=== PATIENT | male | born 1990 | race Caucasian/White ===

== ENCOUNTER 2020-10-30 15:47 | Emergency (ER) | payer BC ==
[2020-10-30] MEDS ORDERED: Lidocaine 1% 30 ML SDV INJECT ONE (16:06)
--- NOTE | 2020-10-30 16:07 | CR ---
PROCEDURE INFORMATION: Exam: XR Left Finger(s) Exam date and time: 10/30/2020 3:57 PM Age: 30 years old Clinical indication: Pain; Finger(s); Left; Additional info: Hit finger, has deformity TECHNIQUE: Imaging protocol: XR Left fingers. Views: Minimum 2 views. COMPARISON: No relevant prior studies available. FINDINGS: Bones/joints: There is posterior dislocation of the middle phalanx on the proximal phalanx of the left ring finger. There appears to be a small fracture fragment between the 2 bones. The donor site is likely from the proximal end of the middle phalanx. The other joints appear to be maintained. Soft tissues: There is mild soft tissue swelling. IMPRESSION: Fracture dislocation of the proximal interphalangeal joint of the left ring finger.
--- NOTE | 2020-10-30 16:24 | EDM.PDOC ---
ED HPI GENERAL MEDICAL PROBLEM - General Chief Complaint: Upper Extremity Injury/Pain Stated Complaint: BROKEN AND DISLOCATED RING FINGER Time Seen by Provider: 10/30/20 16:00 Source of Information: Reports: Patient History Limitations: Reports: No Limitations - History of Present Illness INITIAL COMMENTS - FREE TEXT/NARRATIVE: 30 y/o M was standing on a rolling chair and the chair came out from under him. He fell and landed on his L hand and beleives he dislocated his 4th finger on his left hands. Pn is 03/09. No loc or other injury. No med hx, meds, allergies. Onset: Today, Sudden Duration: Hour(s): Location: Reports: Upper Extremity, Left Quality: Reports: Sharp Severity: Mild Improves with: Reports: None Worsens with: Reports: Movement - Related Data Allergies Allergy/AdvReac Type Severity Reaction Status Date / Time No Known Allergies Allergy Verified 10/30/20 16:17 Home Meds: Home Meds . [No Known Home Meds] 10/30/20 [History] Review of Systems - Review of Systems Review Of Systems: Comprehensive ROS is negative, except as noted in HPI. ED EXAM, GENERAL - Physical Exam Exam: See Below Exam Limited By: No Limitations General Appearance: Alert, WD/WN, No Apparent Distress Respiratory/Chest: Lungs Clear, Normal Breath Sounds Cardiovascular: Normal Peripheral Pulses, Regular Rate, Rhythm GI/Abdominal: Soft, Non-Tender Extremities: Other (abrasion and medial deviaton to the 4th finger at the PIP joint) ED TRAUMA EXTREMITY PROCEDURES - Joint Reduction Left Fingers Pre-Procedure NV Status: Normal Post-Procedure NV Status: Normal Technique: Traction/Counter Traction Number of Attempts: 1 Post-Reduction Imaging: Completely Reduced Joint Reduction Complications: No Progress/Comments: reduced 4th finger pip joint dislocation. Pt requested no analgesia prior to reduction. Reduction successful after one attempt and well tolerated by pt. Course - Vital Signs Last Recorded V/S: Last Vital Signs Temp Pulse 68 10/30/20 16:25 Resp 16 10/30/20 16:25 BP 158/93 H 10/30/20 16:25 Pulse Ox 97 10/30/20 16:25 - Orders/Labs/Meds Orders: Active Orders 24 hr Category Date Time Status DME for Discharge [COMM] Routine Oth 10/30/20 16:06 Ordered Meds: Medications Discontinued Medications Generic Name Dose Route Start Last Admin Trade Name Freq PRN Reason Stop Dose Admin Lidocaine HCl 30 ml 10/30/20 16:06 Lidocaine 1% 30 Ml Sdv INJECT 10/30/20 16:07 ONETIME ONE Departure - Departure Time of Disposition: 16:21 Disposition: Home, Self-Care 01 Condition: Good Clinical Impression: Finger dislocation Qualifiers: Encounter type: initial encounter Qualified Code(s): S63.259A - Unspecified dis location of unspecified finger, initial encounter - Discharge Information *PRESCRIPTION DRUG MONITORING PROGRAM REVIEWED*: Not Applicable *COPY OF PRESCRIPTION DRUG MONITORING REPORT IN PATIENT MICHAEL: Not Applicable Instructions: Finger or Thumb Dislocation, [id number] Forms: ED Department Discharge Additional Instructions: wear splint 10-14 days. Dont stand on rolling office chairs as they may roll away and you can fall and dislocate other fingers. Use Tylenol or Motrin for pain. Ice and rest injury. If any new symptoms or concerns develop contact your [facility] care facility or return to the ER. Sepsis Event Note (ED) - Focused Exam Vital Signs: Vital Signs Pulse Resp BP Pulse Ox 10/30/20 16:25 68 16 158/93 H 97
== END 2020-10-30 16:56 | disposition home or self-care (01) ==
LOC: DL.ED 15:47
DX: S62.615A Displaced fracture of proximal phalanx of left ring finger, initial encounter for closed fracture (principal); S63.285A Dislocation of proximal interphalangeal joint of left ring finger, initial encounter; W17.89XA Other fall from one level to another, initial encounter
CPT/HCPCS: 26770; 73140-F3; 99283-25